=== PATIENT | male | born 1965 | race Caucasian/White ===

== ENCOUNTER 2020-03-05 09:16 | Day surgery (SDC) | payer BC ==
[2020-03-05] MEDS ORDERED: Propofol 200 MG/20 ML SDV IV ONE (09:17)
[2020-03-05] MEDS ORDERED: Sodium Chloride 0.9% 10 ML Syringe FLUSH PRN (09:45)
[2020-03-05] MEDS ORDERED: Lactated Ringers 1,000 ML IV SCH (09:45)
--- NOTE | 2020-03-05 11:59 | PCM.OPNOTE ---
- General Post-Op/Procedure Note Date of Surgery/Procedure: 03/05/20 Operative Procedure(s): c scope with biopsy. Findings: ascending colon polyp (1 mm) Pre Op Diagnosis: screening Post-Op Diagnosis: ascending colon polyp (1 mm) Anesthesia Technique: MAC Primary Surgeon: Silvestre Jacobo Anesthesia Provider: Jhony Polanco Pathology: ascending colon polyp (1 mm) Complications: None Condition: Good Free Text/Narrative:: see dictation
--- NOTE | 2020-03-06 08:17 | OR ---
DATE OF OPERATION: 03/05/2020 SURGEON: Silvestre Jacobo MD PROCEDURE PERFORMED: Colonoscopy with cold forceps biopsy. PREOPERATIVE DIAGNOSIS: Colon cancer screening. POSTOPERATIVE DIAGNOSIS: Ascending colon polyp. INDICATIONS FOR PROCEDURE: This is a 54-year-old white male, referred for a screening colonoscopy. He was offered and accepted same. DESCRIPTION OF OPERATION: After an excellent IV sedation was administered, digital rectal exam was performed. No marked abnormality was noted. Flexible colonoscope was inserted and advanced to the cecum. The prep was excellent. The following findings were noted: In ascending colon, small 1 mm polyp, biopsied with cold biopsy forceps, located near the cecum, submitted in a container. Transverse colon, unremarkable. Descending colon, unremarkable. Sigmoid and rectum, unremarkable. Colon was deflated as the scope was removed. The patient tolerated the procedure well, was taken to Recovery in good condition. Results will be sent to the patient via letter. /[id number] /[place]
== END 2020-03-05 12:24 | disposition home or self-care (01) ==
LOC: FB.SDS 09:16
PROVIDERS: ATTEND Surgery
DX: Z12.11 Encounter for screening for malignant neoplasm of colon (principal); D12.2 Benign neoplasm of ascending colon; I10 Essential (primary) hypertension; E66.9 Obesity, unspecified; Z87.891 Personal history of nicotine dependence; Z79.899 Other long term (current) drug therapy; Z68.38 Body mass index [BMI] 38.0-38.9, adult
CPT/HCPCS: 00812-QZ; 88305; J2704; J7120